=== PATIENT | male | born 1980 | race Caucasian/White ===

== ENCOUNTER → 2016-07-15 | Outpatient (CLI) | payer BC, OTHER ==
--- NOTE | 2016-07-16 08:55 | MR ---
EXAMINATION: MRI of the left elbow HISTORY: Pain COMPARISON: Radiographs dated 07/03/2016 TECHNIQUE: Multiplanar and multisequence images obtained of the left elbow without contrast. FINDINGS: There is no joint effusion. There is a trace subcortical edema within the coronoid process . There is also a trace bone marrow edema within the radial neck. Otherwise the bone marrow signal a ppears normal. The articular surfaces appear preserved. The radiocapitellar alignment is normal. The re is minimal increased signal at the distal brachialis tendon at the insertion. The distal biceps t endon and triceps tendon appear normal. The common forearm flexor and extensor tendons are normal. S oft tissues appear unremarkable. IMPRESSION: 1. Trace bone marrow edema within the radial neck and coronoid process of uncertain significance. 2. Mild insertional tendinopathy of the brachialis evidence of a tear.
== END ==
LOC: MW.MRI 10:43
PROVIDERS: ATTEND Orthopaedic Surgery
DX: M75.22 Bicipital tendinitis, left shoulder (principal); R60.0 Localized edema; M25.522 Pain in left elbow
CPT/HCPCS: 73221-26-LT; 73221-LT

== ENCOUNTER 2017-05-13 13:52 | Emergency (ER) | payer OTHER ==
[2017-05-13 14:21] VITALS: BP 135/77
--- NOTE | 2017-05-13 14:41 | EDM.PDOC ---
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 Past medical history: As per history of present illness and as reviewed below otherwise noncontributory. Surgical history: As per history of present illness and as reviewed below otherwise noncontributory. Social history: No reported history of drug or alcohol abuse. Family history: As per history of present illness and as reviewed below otherwise noncontributory. Physical exam: Deferred Diagnostics: Employee exposure panel Therapeutics: None Impression: #1 medical screening exam Definitive disposition and diagnosis as appropriate pending reevaluation and review of above. - Related Data Allergies Allergy/AdvReac Type Severity Reaction Status Date / Time Penicillins Allergy Swelling Verified 05/13/17 14:21 Home Meds: Home Meds buPROPion HCl [Wellbutrin SR] 01/22/16 [History] rOPINIRole [Requip] 01/22/16 [History] Past Medical History HEENT History: Reports: None Cardiovascular History: Reports: None Respiratory History: Reports: None Gastrointestinal History: Reports: None Genitourinary History: Reports: None Neurological History: Reports: None Psychiatric History: Reports: None, OCD Other Psychiatric History: with flying Hematologic History: Reports: None Immunologic History: Reports: None Oncologic (Cancer) History: Reports: None Dermatologic History: Reports: None - Infectious Disease History Infectious Disease History: Reports: Chicken Pox - Past Surgical History Head Surgeries/Procedures: Reports: None HEENT Surgical History: Reports: Tonsillectomy, Other (See Below) Other HEENT Surgeries/Procedures: lasik Male Surgical History: Reports: None Social & Family History - Family History Family Medical History: Noncontributory Cardiac: Reports: CAD, Hypertension, [place] Oncologic: Reports: Colon - Tobacco Use Smoking Status *Q: Never Smoker Years of Tobacco use: 8 Packs/Tins Daily: 0.5 Second Hand Smoke Exposure: No - Caffeine Use Caffeine Use: Reports: Coffee, Soda, Tea - Recreational Drug Use Recreational Drug Use: No ED ROS GENERAL - Review of Systems Review Of Systems: ROS reveals no pertinent complaints other than HPI. ED EXAM, GENERAL - Physical Exam Exam: See Below (See dictation) Course - Vital Signs Last Recorded V/S: Last Vital Signs Temp 36.8 C 05/13/17 14:17 Pulse 87 05/13/17 14:17 Resp 18 05/13/17 14:17 BP 135/77 05/13/17 14:17 Pulse Ox 96 05/13/17 14:17 Departure - Departure Time of Disposition: 14:41 Disposition: Home, Self-Care 01 Condition: Good Clinical Impression: Encounter for medical screening examination - Discharge Information Referrals: PCP,None [Primary Care Provider] - Additional Instructions: The following information is given to patients seen in the emergency department who are being discharged to home. This information is to outline your options for follow-up care. We provide all patients seen in our emergency department with a follow-up referral. The need for follow-up, as well as the timing and circumstances, are variable depending upon the specifics of your emergency department visit. If you don't have a primary care physician on staff, we will provide you with a referral. We always advise you to contact your personal physician following an emergency department visit to inform them of the circumstance of the visit and for follow-up with them and/or the need for any referrals to a consulting specialist. The emergency department will also refer you to a specialist when appropriate. This referral assures that you have the opportunity for followup care with a specialist. All of these measure are taken in an effort to provide you with optimal care, which includes your followup. Under all circumstances we always encourage you to contact your private physician who remains a resource for coordinating your care. When calling for followup care, please make the office aware that this follow-up is from your recent emergency room visit. If for any reason you are refused follow-up, please contact the [facility] emergency department at and asked to speak to the emergency department charge nurse. Follow-up private medical doctor/occupational medicine as discussed
== END 2017-05-13 15:39 | disposition home or self-care (01) ==
LOC: MW.ED 13:52
DX: Z13.818 Encounter for screening for other digestive system disorders (principal); Z88.0 Allergy status to penicillin
CPT/HCPCS: 36415; 86706; 86803; 87389; 99282; 99283

== ENCOUNTER 2020-12-09 19:52 | Emergency (ER) | payer BC, OTHER ==
[2020-12-09] MEDS ORDERED: Aspirin 81 MG Tab.Chew PO ONE (19:57)
[2020-12-09] MEDS ORDERED: Sodium Chloride 0.9% 1,000 ML IV ONE (19:57)
[2020-12-09] MEDS ORDERED: Morphine 4 MG/ML Syringe IVPUSH ONE (19:57)
--- NOTE | 2020-12-09 19:59 | EDM.PDOC ---
ED HPI GENERAL MEDICAL PROBLEM - General Chief Complaint: Chest Pain Stated Complaint: CHEST PAIN Time Seen by Provider: 12/09/20 19:54 Source of Information: Reports: Patient History Limitations: Reports: No Limitations - History of Present Illness INITIAL COMMENTS - FREE TEXT/NARRATIVE: HISTORY AND PHYSICAL: History of present illness: Patient is a 40-year-old male who presents to the emergency room with complaints of chest tightness and tingling sensation that goes into the left arm. He states he was laying down for bed when he started to develop symptoms. Nothing makes the discomfort better or worse. Patient repeatedly states "it is not pain it is just tight feeling". Patient denies any fever, chills, headache, change in vision, syncope or near syncope. Denies any back pain, shortness of breath or cough. Denies any weakness of the upper extremities. Denies any abdominal pain, nausea, vomiting, diarrhea, constipation or dysuria. Has not noted any blood in urine or stool. Patient has been eating and drinking appropriately. Review of systems: As per history of present illness and below otherwise all systems reviewed and negative. Past medical history: As per history of present illness and as reviewed below otherwise noncontributory. Surgical history: As per history of present illness and as reviewed below otherwise noncontributory. Social history: See social history for further information Family history: As per history of present illness and as reviewed below otherwise noncontributory. Physical exam: General: Well developed and well nourished. Alert and orientated x 3. Nontoxic in appearance and in no acute distress. Vital signs are stable and have been reviewed by me. Nursing notes were reviewed. HEENT: Atraumatic, normocephalic, pupils equal and reactive bilaterally, negative for conjunctival pallor or scleral icterus, mucous membranes moist, TMs normal bilaterally, throat clear, neck supple, nontender, trachea midline. No d rooling or trismus noted. No meningeal signs. No hot potato voice noted. Lungs: Clear to auscultation bilaterally. No wheezes, rales, or rhonchi. Chest nontender. Normal work of breathing, no accessory muscles used. Heart: S1S2, regular rate and rhythm without overt murmur, gallops, or rubs. No JVD. No peripheral edema Abdomen: Soft, nondistended, nontender. Normoactive bowel sounds. Negative for masses or costovertebral tenderness. Skin: Intact, warm, dry. No lesions or rashes noted. Hematologic: No petechiae or purpra. Mucosa appropriate color and normal nail bed color and refill. Extremities: Atraumatic, moves all extremities per self without difficulty or deficits, negative for cords or calf pain. Neurovascular unremarkable. Neuro: Awake, alert, oriented. Cranial nerves II through XII unremarkable. Cerebellum unremarkable. Motor and sensory unremarkable throughout. Exam nonfocal. Psychiatric: Mood and affect are appropriate. Normal thought process. Answering questions appropriately. Notes: *This patient was seen and evaluated during the 2019 SARS-CoV-2 novel coronavirus pandemic period. Community viral transmission is ongoing at time of this encounter and the emergency department is operating under pandemic response procedures. Patient is a 40-year-old male who presents to the emergency room with complaints of chest tightness and tingling in the left arm that started approximately 45 minutes prior to arrival. He states nothing makes the pain better or worse. He does appear anxious. Denies any previous cardiac history/risks. He states his father does have a history of heart attack, although is still alive. EKG shows a normal sinus rhythm without any concerns. Chest x-ray is unremarkable. Lab work is pending. Lab work is unremarkable. Patient is pain-free. We did discuss doing a second troponin. He declined stating that he feels this could be anxiety related. He states ever since he has had shingles he does feel anxious about any abnormal feelings he has in his body. His vital signs are stable. Heart score is low. I have talked with the patient about today's findings, in addition to providing specific details for plan of care. Reassessment at the time of disposition demonstrates that the patient is in no acute distress. The patient is stable for discharge, counseling was provided and we discussed in great detail signs and symptoms that would prompt them to return to the Emergency Department. Medication, follow up and supportive care measures were reviewed and discussed. Voices understanding and is agreeable to plan of care. Denies any further questions or concerns at this time. Diagnostics: CBC, CMP, troponin, EKG, chest x-ray, TSH, D-dimer Therapeutics: IV fluid, aspirin, morphine Prescription: None Impression: Chest pain Plan: 1. You were evaluated today on an emergent basis. Your lab work (cardiac enzymes, electrolytes, liver enzymes, thyroid) were normal. EKG was normal. Chest x-ray shows no concerning findings. I would like you to start an 81mg ASA once daily. If your symptoms should worsen, new symptoms develop or any of the signs and symptoms we discussed should arise please return to the emergency room or call 911 (if needed). 2. You can alternate Tylenol and ibuprofen as needed for pain and fever management. 3. We encourage you to follow up with your primary care provider and/or recommended specialist in the next few days for re-evaluation and further care/management. Definitive disposition and diagnosis as appropriate pending reevaluation and review of above. - Related Data Allergies Allergy/AdvReac Type Severity Reaction Status Date / Time Penicillins Allergy Swelling Verified 05/13/17 14:21 Home Meds: Home Meds buPROPion HCL [Wellbutrin SR] 01/22/16 [History] rOPINIRole [Requip] 01/22/16 [History] Past Medical History HEENT History: Reports: None Cardiovascular History: Reports: None Respiratory History: Reports: None Gastrointestinal History: Reports: None Genitourinary History: Reports: None Neurological History: Reports: None Psychiatric History: Reports: None, OCD Other Psychiatric History: with flying Hematologic History: Reports: None Immunologic History: Reports: None Oncologic (Cancer) History: Reports: None Dermatologic History: Reports: None - Infectious Disease History Infectious Disease History: Reports: Chicken Pox - Past Surgical History Head Surgeries/Procedures: Reports: None HEENT Surgical History: Reports: Tonsillectomy, Other (See Below) Other HEENT Surgeries/Procedures: lasik Male Surgical History: Reports: None Social & Family History - Family History Family Medical History: No Pertinent Family History Cardiac: Reports: CAD, Hypertension, [place] Oncologic: Reports: Colon - Caffeine Use Caffeine Use: Reports: Coffee, Soda, Tea ED ROS GENERAL - Review of Systems Review Of Systems: Comprehensive ROS is negative, except as noted in HPI. ED EXAM, GENERAL - Physical Exam Exam: See Below (See dictation) Course - Vital Signs Last Recorded V/S: Last Vital Signs Temp 98.0 F 12/09/20 20:00 Pulse 84 12/09/20 21:14 Resp 17 12/09/20 21:14 BP 128/86 12/09/20 21:14 Pulse Ox 97 12/09/20 21:14 - Orders/Labs/Meds Labs: Laboratory Tests 12/09/20 12/09/20 12/09/20 Range/Units 20:00 20:00 20:00 WBC 8.92 (4.0-11.0) K/uL RBC 5.02 (4.50-5.90) M/uL Hgb 15.0 (13.0-17.0) g/dL Hct 43.1 (38.0-50.0) % MCV 85.9 (80.0-98.0) fL MCH 29.9 (27.0-32.0) pg MCHC 34.8 (31.0-37.0) g/dL RDW Std Deviation 41.7 (28.0-62.0) fl RDW Coeff of Quentin 13 (11.0-15.0) % Plt Count 281 (150-400) K/uL MPV 9.70 (7.40-12.00) fL Neut % (Auto) 48.7 (48.0-80.0) % Lymph % (Auto) 39.0 (16.0-40.0) % Holmes % (Auto) 10.4 (0.0-15.0) % Eos % (Auto) 1.5 (0.0-7.0) % Baso % (Auto) 0.4 (0.0-1.5) % Neut # (Auto) 4.3 (1.4-5.7) K/uL Lymph # (Auto) 3.5 H (0.6-2.4) K/uL Holmes # (Auto) 0.9 H (0.0-0.8) K/uL Eos # (Auto) 0.1 (0.0-0.7) K/uL Baso # (Auto) 0.0 (0.0-0.1) K/uL Nucleated RBC % 0.0 /100WBC Nucleated RBCs # 0 K/uL D-Dimer, Quantitative < 0.19 (0.0-0.50) mg/L FEU Sodium 140 (136-148) mmol/L Potassium 3.6 (3.5-5.1) mmol/L Chloride 102 (98-107) mmol/L Carbon Dioxide 25.5 (21.0-32.0) mmol/L BUN 16 (7.0-18.0) mg/dL Creatinine 1.1 (0.8-1.3) mg/dL Est Cr Clr Drug Dosing TNP Estimated GFR (MDRD) > 60.0 ml/min Glucose 140 H (74-106) mg/dL Calcium 9.1 (8.5-10.1) mg/dL Total Bilirubin 0.4 (0.2-1.0) mg/dL AST 22 (15-37) IU/L ALT 52 (14-63) IU/L Alkaline Phosphatase 83 (46-116) U/L Troponin I < 0.050 (0.000-0.056) ng/mL Total Protein 7.5 (6.4-8.2) g/dL Albumin 4.4 (3.4-5.0) g/dL Globulin 3.1 (2.6-4.0) g/dL Albumin/Globulin Ratio 1.4 (0.9-1.6) TSH, Ultra Sensitive 0.57 (0.36-3.74) uIU/mL Meds: Medications Discontinued Medications Generic Name Dose Route Start Last Admin Trade Name Dana PRN Reason Stop Dose Admin Aspirin 324 mg 12/09/20 19:57 12/09/20 20:21 Aspirin 81 Mg Tab.Chew PO 12/09/20 19:58 324 mg ONETIME ONE Administration Sodium Chloride 1,000 mls @ 999 mls/hr 12/09/20 19:57 12/09/20 20:22 Normal Saline IV 12/09/20 20:57 999 mls/hr STAT ONE Administration Morphine Sulfate 4 mg 12/09/20 19:57 12/09/20 20:38 Morphine 4 Mg/Ml Syringe IVPUSH 12/09/20 19:58 Not Given ONETIME ONE Morphine Sulfate 2 mg 12/09/20 20:04 12/09/20 20:21 Morphine 2 Mg/Ml Syringe IVPUSH 12/09/20 20:05 2 mg ONETIME ONE Administration Departure - Departure Time of Disposition: 21:05 Disposition: Home, Self-Care 01 Clinical Impression: Chest pain Qualifiers: Chest pain type: unspecified Qualified Code(s): R07.9 - Chest pain, unspecified Instructions: Nonspecific Chest Pain, Adult, [id number] Referrals: PCP,None [Primary Care Provider] - Forms: ED Department Discharge Additional Instructions: The following information is given to patients seen in the emergency department who are being discharged to home. This information is to outline your options for follow-up care. We provide all patients seen in our emergency department with a follow-up referral. The need for follow-up, as well as the timing and circumstances, are variable depending upon the specifics of your emergency department visit. If you don't have a primary care physician on staff, we will provide you with a referral. We always advise you to contact your personal physician following an emergency department visit to inform them of the circumstance of the visit and for follow-up with them and/or the need for any referrals to a consulting specialist. The emergency department will also refer you to a specialist when appropriate. This referral assures that you have the opportunity for follow-up care with a specialist. All of these measure are taken in an effort to provide you with optimal care, which includes your follow-up. Under all circumstances we always encourage you to contact your private physician who remains a resource for coordinating your care. When calling for follow-up care, please make the office aware that this follow-up is from your recent emergency room visit. If for any reason you are refused follow-up, please contact the [facility] Emergency Department at and asked to speak to the emergency department charge nurse. [facility] Primary Care [address] [place] [id number] [place] [address] Thank you for choosing the [facility] emergency department in [place] for your medical needs today. It was a pleasure caring for you. Today you were seen in the emergency department for chest pain. 1. You were evaluated today on an emergent basis. Your lab work (cardiac enzymes, electrolytes, liver enzymes, thyroid) were normal. EKG was normal. Chest x-ray shows no concerning findings. I would like you to start an 81mg ASA once daily. If your symptoms should worsen, new symptoms develop or any of the signs and symptoms we discussed should arise please return to the emergency room or call [phone] (if needed). 2. You can alternate Tylenol and ibuprofen as needed for pain and fever management. 3. We encourage you to follow up with your primary care provider and/or recommended specialist in the next few days for re-evaluation and further care/management. Sepsis Event Note (ED) - Focused Exam Vital Signs: Vital Signs Temp Pulse Resp BP Pulse Ox 12/09/20 21:14 84 17 128/86 97 12/09/20 20:27 90 17 137/88 100 12/09/20 20:00 98.0 F 89 22 H 154/100 H 99
--- NOTE | 2020-12-09 20:03 | PCM.EKG ---
#1 Interpretation EKG Date: 12/09/20 Time: 19:58 Rhythm: NSR Rate (Beats/Min): 82 [place]: Normal P-Wave: Present QRS: Normal ST-T: Normal QT: Normal MA/PQ Interval: 120 EKG Interpretation Comments: Normal EKG without ischemic changes
[2020-12-09] MEDS ORDERED: Morphine 2 MG/ML SYRINGE IVPUSH ONE (20:04)
--- NOTE | 2020-12-09 20:28 | CR ---
Indication: Chest pain Technique: Chest 1 view Comparison: None Findings/Impression: Cardiovascular and mediastinum: Heart size and vasculature are normal in caliber and appearance. Lungs and pleural space: Lungs are clear. No sign of infiltrate or mass. No sign of pleural effusion. No pneumothorax. Bones and soft tissues: No acute findings. Dictated by Preston Carmona MD @ 12/09/2020 8:26:[address] Preston Carmona @ Dec 09 2020 8:26PM
[2020-12-09 20:42] LABS: BLOOD UREA NITROGEN,BUN 16 mg/dL (7.0-18.0); CARBON DIOXIDE,CO2 25.5 mmol/L (21.0-32.0); CHLORIDE,CL 102 mmol/L (98-107); GLUCOSE RANDOM 140 mg/dL (74-106); POTASSIUM,K 3.6 mmol/L (3.5-5.1); SODIUM,NA 140 mmol/L (136-148)
[2020-12-09 21:14] VITALS: BP 128/86; PULSE 84
== END 2020-12-09 21:15 | disposition home or self-care (01) ==
LOC: MW.ED 19:52
DX: R07.89 Other chest pain (principal); Z88.0 Allergy status to penicillin
CPT/HCPCS: 36415; 71045; 80053; 84443; 84484; 85025; 85379; 93005; 96374; 99285; A9270; J2270; J7030

== ENCOUNTER 2022-01-26 15:44 | Emergency (ER) | payer OTHER ==
[2022-01-26] MEDS ORDERED: Rabies Vaccine (Avian) 2.5 Unit Inj Kit IM ONE (16:35)
[2022-01-26 18:04] VITALS: BP 145/91; PULSE 83
== END 2022-01-26 18:04 | disposition home or self-care (01) ==
LOC: MW.ED 15:44
DX: S51.852A Open bite of left forearm, initial encounter (principal); W55.81XA Bitten by other mammals, initial encounter; Z23 Encounter for immunization
CPT/HCPCS: 90375; 90471; 90675; 96372; 99283; 99283-25